=== PATIENT | female | born 1935 | race Caucasian/White ===

== ENCOUNTER → 2020-02-08 | Outpatient (CLI) | payer MEDICARE ==
[~2020-02-08] MED LIST: ACET1TAB33 PO; ASPI81TA59 PO; BUPIVACAINE MPF 0.5% 10 ML VIAL. INT ART ONE; IOHEXOL 300 MG/ML 50 ML VIAL. INT ART ONE; LEVO25TA4 PO; LIDOCAINE 1% Multi-Dose 20 ML VIAL. ID ONE; METO-239 PO; TRAM50TA PO; methylPREDNISolone ACETATE 40 MG/ML VIAL. INT ART ONE
--- NOTE | 2020-02-08 11:55 | KCIC ---
EXAM: Left hip joint injection WITH Fluoroscopic guidance DATE: 02/08/2020 10:45 AM CLINICAL HISTORY: Reason: Primary arthritis Lt hip / Spl. Instructions: 4mL Lidocaine,4mL Bupivicaine,80mg DepoMedrol, 4mL Omni 300,10sec fl,1image / History: Chronic intermittent Lt hip pain COMPARISON: None pertinent TECHNIQUE: The patient was informed of the indications and alternatives for this procedure as well as risks and benefits. No immediate contraindication identified. The patient provided informed, written consent. Laterality was confirmed by the entire team following a time out. Following initial left hip localization, a suitable area was sterilely prepped and draped. Of note, more medially and superiorly patient had shallow skin lesions and the approach was therefore chosen to the lateral and inferior, far from the skin changes. Local anesthesia was administered with 1% xylocaine. With intermittent fluoroscopic observation, a 22-gauge spinal needle was advanced into the left hip joint sheath/capsule with confirmation of intra-synovial position with infusion of less than 1 cc iodinated contrast. Subsequent infusion 80 mg Depo-Medrol, 4 cc xylocaine 1% and 4 cc bupivacaine 0.5%. Hemostasis with local pressure. Local clinical exam negative for immediate complication. Patient informed re local potential signs or symptoms that may indicate need to return to ER/Ordering physician for further evaluation. Patient informed re precautionary measures after intra-synovial injection of anesthetic. Patient informed re potential for short term increase local symptomatology due to steroid flare. Patient expressed understanding. Performing Physicians: Dr. Alberto Zaman Blood Loss: 0 cc Patient noted improvement in left hip pain following injection. Total Fluoroscopy time: 10 seconds Total spot images taken: 0 Total number screen save images taken: 1 IMPRESSION: Successful intra-synovial injection left hip joint with steroid and anesthetic per clinical request. Electronically signed by: Fredy Zaman MD (02/08/2020 11:53 AM) [id number]
== END | disposition home or self-care (01) ==
LOC: KCIC 10:26
PROVIDERS: ATTEND Orthopaedic Surgery
DX: M13.852 Other specified arthritis, left hip (principal); Z79.82 Long term (current) use of aspirin; Z79.899 Other long term (current) drug therapy; Z88.8 Allergy status to other drugs, medicaments and biological substances
CPT/HCPCS: 20610; 77002; J1030; J3490; Q9967

== ENCOUNTER → 2020-05-08 | Outpatient (CLI) | payer MEDICARE ==
[~2020-05-08] MED LIST changes: +CONTRAST GIVEN. MC PRN
--- NOTE | 2020-05-09 15:21 | KCIC ---
EXAM: Left hip injection WITH Fluoroscopic guidance DATE: 05/08/2020 10:30 AM CLINICAL HISTORY: Reason: Primary osteoarthritis, pain, hurt to bear weight. / Spl. Instructions: 4mL Lidocaine,4mL Bupivicaine,80mg Depo Medrol,5 Seconds fl, 1 image / History: Previous pain injection w/relief, 2019 COMPARISON: None pertinent TECHNIQUE: The patient was informed of the indications and alternatives for this procedure as well as risks and benefits. No immediate contraindication identified. The patient provided informed, written consent. Laterality was confirmed by the entire team following a time out. Following initial left hip localization, a suitable area was sterilely prepped and draped. Local anes thesia was administered with 1% xylocaine. With intermittent fluoroscopic observation, a 22-guage spi nal needle was advanced into the left hip joint sheath/capsule with confirmation of intra-synovial po sition with infusion of less than 1 cc iodinated contrast. Subsequent infusion of 80 mg Depo-Medrol 8 0 mg/mL, 4 mL lidocaine 1 percent and 4 mL bupivacaine 0.5 percent. Hemostasis with local pressure. L ocal clinical exam negative for immediate complication. Patient informed re local potential signs or symptoms that may indicate need to return to ER/Ordering physician for further evaluation. Patient informed re precautionary measures after intra-synovial in jection of anesthetic. Patient informed re potential for short term increase local symptomatology due to steroid flare. Patient expressed understanding. Performing Physicians: Dr. Alberto Zaman Blood Loss: 0 cc Total Fluoroscopy time: 5 seconds Total spot images taken: 0 Single last image hold image saved. IMPRESSION: Successful intra-synovial injection of steroid and anesthetic into the left hip per clinical request. Electronically signed by: Fredy Zaman MD (05/09/2020 3:18 PM) [id number]
== END | disposition home or self-care (01) ==
LOC: KCIC 10:14
PROVIDERS: ATTEND Orthopaedic Surgery
DX: M16.12 Unilateral primary osteoarthritis, left hip (principal); Z79.82 Long term (current) use of aspirin; Z79.899 Other long term (current) drug therapy; Z88.8 Allergy status to other drugs, medicaments and biological substances
CPT/HCPCS: 20610; 77002; J1030; J3490; Q9967